=== PATIENT | male | born 1965 | race Caucasian/White ===

== ENCOUNTER → 2018-04-17 16:45 | Outpatient (CLI) | payer BC, SELFPAY ==
[2018-04-17 17:47] LABS: AST(SGOT) 28 U/L (15-37); Alanine Aminotransfer ALT/SGPT 32 U/L (16-61); Cholesterol 192 mg/dL (200); High Density Lipoprotein 80 mg/dL; Triglycerides 114 mg/dL; Very Low Density Lipoprotein 23 mg/dL (5-40)
== END ==
PROVIDERS: Family Provider Family Medicine; PCP Family Medicine; Visit Provider Family Medicine
DX: E78.5 Hyperlipidemia, unspecified (principal)
CPT/HCPCS: 36415; 80061; 84450; 84460

== ENCOUNTER → 2019-04-14 10:05 | Outpatient (CLI) | payer BC, SELFPAY ==
[2016-05-13 22:34] VITALS: BMI 25.8
[2019-04-14 12:50] LABS: AST(SGOT) 29 U/L (15-37); Alanine Aminotransfer ALT/SGPT 36 U/L (16-61); Cholesterol 205 mg/dL (200); High Density Lipoprotein 67 mg/dL; PSA,Total - Annual Screen 0.82 ng/mL (0.00-4.00); Triglycerides 183 mg/dL; Very Low Density Lipoprotein 37 mg/dL (5-40)
== END ==
PROVIDERS: Family Provider Family Medicine; PCP Family Medicine; Visit Provider Family Medicine
DX: Z00.00 Encounter for general adult medical examination without abnormal findings (principal); E78.5 Hyperlipidemia, unspecified
CPT/HCPCS: 36415; 80061; 84153; 84450; 84460; G0103

== ENCOUNTER → 2020-06-01 09:38 | Outpatient (CLI) | payer BC, SELFPAY ==
[2016-05-13 22:34] VITALS: BMI 25.8
[2020-06-01 12:24] LABS: AST(SGOT) 41 U/L (15-37); Alanine Aminotransfer ALT/SGPT 46 U/L (16-61); Cholesterol 197 mg/dL (200); High Density Lipoprotein 65 mg/dL; Triglycerides 100 mg/dL; Very Low Density Lipoprotein 20 mg/dL (5-40)
== END ==
PROVIDERS: PCP Family Medicine; Referring Provider Family Medicine; Visit Provider Family Medicine
DX: E78.5 Hyperlipidemia, unspecified (principal)
CPT/HCPCS: 36415; 80061; 84450; 84460

== ENCOUNTER → 2020-06-24 | Outpatient (CLI) | payer BC, SELFPAY ==
[2016-05-13 22:34] VITALS: BMI 25.8
== END | disposition home or self-care (01) ==
PROVIDERS: PCP Family Medicine; Referring Provider Family Medicine; Visit Provider Family Medicine
DX: Z20.828 Contact with and (suspected) exposure to other viral communicable diseases (principal)
CPT/HCPCS: 87635; U0003

== ENCOUNTER 2020-10-13 14:46 | Emergency (ER) | payer BC, SELFPAY ==
[2020-10-13 14:48] VITALS: BP 170/109; PULSE 95; RESP 17; TEMP 36.7; O2SAT 98; BMI 27.3
--- NOTE | 2020-10-13 15:24 | EKG12_ITS ---
Test Reason : COUGH Blood Pressure : / mmHG Vent. Rate : 092 BPM Atrial Rate : 092 BPM P-R Int : 154 ms QRS Dur : 078 ms QT Int : 334 ms P-R-T Axes : 042 023 033 degrees QTc Int : 413 ms Normal sinus rhythm Normal ECG Confirmed by AYDEE KUMAR, EMILIANO ([id number]), food expeditor NENA BUCHANAN ([id number]) on 10/15/2020 11:11:29 AM Referred By: JOSE Confirmed By:EMILIANO BAJWA MD
--- NOTE | 2020-10-13 15:50 | ED.VISSUMM ---
- ER Visit Summary Date of Service: 10/13/20 Chief Complaint: Cough, fever History of Present Illness: The patient is a 54 M presenting with cough, fever. He states his symptoms started yesterday. He had a routine screening colonoscopy per Dr. Asif yesterday. He states that during the procedure he had significant GERD and they were concerned about aspiration during the procedure. He was advised to come to the ED if he had persistent fever and cough. He had a temperature up to 101 today. He has had chills and nonproductive cough. He denies chest pain. Denies other complaints. Physical Examination: Vitals are stable. Patient is afebrile. Alert no acute distress. HEENT exam is unremarkable. Neck is supple. Lungs are rhonchi bilaterally. Heart is regular rate and rhythm. Abdomen is soft nontender nondistended. Extremities are unremarkable. Skin is warm and dry. No focal neurologic deficit. Remainder of exam is unremarkable. Emergency Department Course and Treatment: EKG is sinus rhythm rate of 92 with no acute ischemic changes. Chest x-ray shows left lower lung infiltrate. Labs are pending. Patient will be signed out to the oncoming physician. Disposition: pending Impression: Aspiration pneumonia This note was generated with [employer] dictation software. It may contain incorrect words, spelling, and punctuation that were not noted in review of the chart prior to signing ED Disposition - Plan for ED Patient: Referrals: Susana Vargas MD [Primary Care Provider] -
[2020-10-13 15:55] VITALS: O2SAT 97
--- NOTE | 2020-10-13 15:55 | RAD_ITS ---
STUDY: X-RAY CHEST REASON FOR EXAM: Male, 54 years old. COUGH, FEVER, CHILLS. STATES HE HAD ISSUE WITH GERD WHILE HAVING A COLONOSCOPY YESTERDAY. WORRIED ABOUT ASPIRATION. TECHNIQUE: Single AP portable view of the chest. COMPARISON: None. FINDINGS: There are monitoring devices. There are mild left lower lung increased opacities. There is no demonstrated pleural abnormality. Normal size heart. Normal mediastinum and skye. Normal visualized pulmonary arteries. Normal visualized aortic arch and descending thoracic aorta. Normal visualized thoracic spine. Normal visualized ribs, clavicles, and shoulders. There is no demonstrated abnormality of the visualized soft tissue structures of the upper abdomen. RAD/Chest 1 View (Portable) IMPRESSION: Left lower lung infiltrate or atelectasis. Electronically Signed: Harpal Cox MD at 16:18 EST , Service support ,
[2020-10-13 16:06] LABS: Absolute Lymphocyte Count 1.24 X10^3/uL (0.83-4.51); Absolute Neutrophil Count 10.3 X10^3/uL (2.0-7.7); Basophil# 0.04 X10^3/uL; Basophil% 0.3 % (0-1); Eosinophils% 1.6 % (0-5); Hematocrit 45.4 % (40-54); Hemoglobin 14.9 g/dL (13.0-16.5); Lymphocyte # 1.24 X10^3/ul (4.0); Lymphocyte % 9.7 % (19-41); Mean Corp Hgb Conc 32.8 g/dL (32-36); Mean Corpuscular Hgb 31.2 pg (27.0-32.0); Mean Corpuscular Volume 95.2 fL (80-94); Mean Platelet Vol. 9.3 fl (6.2-12.0); Monocyte# 0.87 X10^3/uL; Monocyte% 6.8 % (0-10); NRBC Flagged by Analyzer 0 % (0-5); Neutrophil # 10.31 X10^3/uL (2.7-7.7); Neutrophil % 81.1 % (47-70); Platelet Count 214 K/mm3 (150-450); RBC Distribution Width CV 13.7 % (11.6-14.6); RBC Distribution Width SD 48.5 fl (35.1-43.9); Red Blood Count 4.77 M/mm3 (4.6-6.2); White Blood Count 12.7 K/mm3 (4.4-11.0)
[2020-10-13 16:40] LABS: D-Dimer Quantitative (DVT/PE) 2.83 FEU/ug/m (0.27-0.49)
--- NOTE | 2020-10-13 16:43 | CT_ITS ---
STUDY: CTA CHEST REASON FOR EXAM: Male, 54 years old. Cough fever, chills, elevated D-dimer, patient had colonoscopy yesterday and aspirated. RADIATION DOSAGE (If Supplied By Facility): CTDIvol = ( 1041 ) mGy, DLP = ( 489.86 ) mGycm TECHNIQUE: The examination was performed with the intravenous administration of IV 100mL Isovue-370. Post-processing of the angiographic images was performed, with multiplanar reformation and 3D reconstruction. Individualized dose optimization techniques were used for this CT. COMPARISON: Chest x-ray FINDINGS: Normal enhancement of the main pulmonary artery and right and left pulmonary arteries. Normal enhancement of the bilateral peripheral pulmonary arteries. There is no demonstrated pulmonary embolism. There is atherosclerotic calcification of the aortic arch with tortuosity. There is no demonstrated aortic dissection. Normal heart and pericardium. Normal mediastinum. Normal hilar regions. Normal visualized trachea and bronchi. The lungs are well expanded. There are patchy groundglass increased opacities of the left lower more than mid and upper lung. Right lower lung atelectasis. Normal pleura. Normal chest wall structures. Normal osseous structures. Normal visualized upper abdomen. CT/CTA Chest W/WO Contrast IMPRESSION: CTA chest examination, without a demonstrated pulmonary embolism or arterial dissection. Left lung infiltrate. Electronically Signed: Harpal Cox MD at 17:52 EST , Service support ,
[2020-10-13 16:53] LABS: ALB/GLOB Ratio 0.9 RATIO (0.9-2.4); AST(SGOT) 20 U/L (15-37); Alanine Aminotransfer ALT/SGPT 29 U/L (16-61); Albumin, Serum 3.5 g/dL (3.2-5.0); Alkaline Phosphatase 49 U/L (45-117); Anion Gap 6 (5-15); BUN 7 mg/dL (7-18); BUN/Creat Ratio 5.6 RATIO (10-20); Calcium,Total 9.8 mg/dL (8.5-10.1); Chloride 106 mmol/L (98-107); Creatinine, Serum 1.26 mg/dL (0.70-1.30); EST Glomerular Filtration Rate 63 mL/min (>60); Est Glom Filt Rate - Afr Amer 76 mL/min (>60); Estimated Creatinine Clearance 59.07 ml/min; Globulin 3.8 g/dL (2.2-4.2); Glucose 97 mg/dL (74-106); Potassium 3.8 mmol/L (3.5-5.1); Protein, Total 7.3 g/dL (6.4-8.2); Sodium Level 139 mmol/L (136-145)
[2020-10-13 17:04] VITALS: BP 162/97; PULSE 91; RESP 26; TEMP 37.1; O2SAT 97
[2020-10-13 17:08] VITALS: O2SAT 97
--- NOTE | 2020-10-13 18:16 | ED.DEP ---
ED Disposition - Plan for ED Patient: Disposition: Home or Assisted Living Diagnosis: Pneumonia Instructions: ED Pneumonia (Adult) Prescriptions: levoFLOXacin tablet [Levaquin] 500 mg PO DAILY #7 tab Prescription Printed Referrals: Susana Vargas MD [Primary Care Provider] -
[2020-10-13 18:31] VITALS: BP 162/98; PULSE 94; RESP 27; O2SAT 96
== END 2020-10-13 18:43 | disposition home or self-care (01) ==
PROVIDERS: Emergency Provider Emergency Medicine; PCP Family Medicine
DX: J69.0 Pneumonitis due to inhalation of food and vomit (principal); Z20.822 Contact with and (suspected) exposure to COVID-19; R79.89 Other specified abnormal findings of blood chemistry; I10 Essential (primary) hypertension; K21.9 Gastro-esophageal reflux disease without esophagitis
CPT/HCPCS: 71045; 71275; 80053; 84484; 85025; 85379; 87426; 93005; 99285; Q9967; A4216

== ENCOUNTER 2021-10-04 14:28 | Outpatient (CLI) | payer BC, SELFPAY ==
[2021-10-04 17:51] LABS: AST(SGOT) 25 U/L (15-37); Alanine Aminotransfer ALT/SGPT 36 U/L (16-61); Cholesterol 198 mg/dL (200); High Density Lipoprotein 81 mg/dL; Triglycerides 115 mg/dL; Very Low Density Lipoprotein 23 mg/dL (5-40)
== END 2021-10-04 23:59 | disposition short-term general hospital (02) ==
LOC: MFPLAB 14:29
PROVIDERS: PCP Family Medicine; Referring Provider Family Medicine; Visit Provider Family Medicine
DX: E78.5 Hyperlipidemia, unspecified (principal)
CPT/HCPCS: 36415; 80061; 84450; 84460

== ENCOUNTER → 2022-10-04 | Outpatient (CLI) | payer OTHER, SELFPAY ==
[2022-10-04 17:36] LABS: Absolute Lymphocyte Count 2.15 X10^3/uL (0.83-4.51); Absolute Neutrophil Count 1.9 X10^3/uL (2.0-7.7); Basophil# 0.06 X10^3/uL; Basophil% 1.2 % (0-1); Eosinophil# 0.01 X10^3/uL; Eosinophils% 0.2 % (0-5); Hematocrit 46.1 % (40-54); Lymphocyte # 2.15 X10^3/ul (0.83-4.51); Lymphocyte % 44.5 % (19-41); Mean Corp Hgb Conc 32.5 g/dL (32-36); Mean Corpuscular Volume 95.2 fL (80-94); Mean Platelet Vol. 9.8 fl (6.2-12.0); Monocyte# 0.75 X10^3/uL; Monocyte% 15.5 % (0-10); NRBC Flagged by Analyzer 0 % (0-5); Neutrophil # 1.85 X10^3/uL (2.7-7.7); Neutrophil % 38.4 % (47-70); Platelet Count 269 K/mm3 (150-450); RBC Distribution Width CV 13.5 % (11.6-14.6); RBC Distribution Width SD 47.7 fl (35.1-43.9); Red Blood Count 4.84 M/mm3 (4.6-6.2); White Blood Count 4.8 K/mm3 (4.4-11.0)
[2022-10-04 18:19] LABS: AST(SGOT) 31 U/L (15-37); Alanine Aminotransfer ALT/SGPT 44 U/L (16-61); Albumin, Serum 3.6 g/dL (3.2-5.0); Alkaline Phosphatase 46 U/L (45-117); Anion Gap 10 (5-15); BUN 15 mg/dL (7-18); BUN/Creat Ratio 13.9 RATIO (10-20); Calcium,Total 9.1 mg/dL (8.5-10.1); Chloride 101 mmol/L (98-107); Cholesterol 217 mg/dL (200); Creatinine, Serum 1.08 mg/dL (0.70-1.30); EST Glomerular Filtration Rate 74 mL/min (>60); Est Glom Filt Rate - Afr Amer 90 mL/min (>60); Globulin 3.6 g/dL (2.2-4.2); Glucose 76 mg/dL (74-106); High Density Lipoprotein 61 mg/dL; PSA,Total - Annual Screen 0.92 ng/mL (0.00-4.00); Potassium 3.9 mmol/L (3.5-5.1); Protein, Total 7.2 g/dL (6.4-8.2); Sodium Level 139 mmol/L (136-145); Triglycerides 128 mg/dL; Very Low Density Lipoprotein 26 mg/dL (5-40)
[2022-10-04 18:34] LABS: Erythrocyte Sedimentation Rate 17 mm/hr (0-20)
[2022-10-10 20:20] LABS: EBV Acute VCA IgM < 36.0 U/mL (0.0-35.9); EBV-VCA IgG 19.8 U/mL (0.0-17.9)
== END | disposition home or self-care (01) ==
LOC: MFPLAB 14:59
PROVIDERS: PCP Family Medicine; Referring Provider Family Medicine; Visit Provider Family Medicine
DX: Z00.00 Encounter for general adult medical examination without abnormal findings (principal); Z12.5 Encounter for screening for malignant neoplasm of prostate; E78.5 Hyperlipidemia, unspecified; R68.83 Chills (without fever)
CPT/HCPCS: 36415; 80053; 80061; 84153; 85025; 85652; 86664; 86665; G0103

== ENCOUNTER → 2024-02-18 | Outpatient (CLI) | payer OTHER, SELFPAY ==
--- NOTE | 2024-02-15 16:45 | LES_PTH ---
PATIENT: AMANDA BARNES [facility] U#:[id number] AGE/SX: 58/M ROOM: RE02/18/[address]: Dr. Susana Vargas MD : 1965 BED: DIS: 02/18/2024 SPEC #: [id number] RECD: 02/18/24 10:33 STATUS: FLACO MARIZA #: [id number] DASH: 02/15/24 16:[address]: Susana Vargas DEPT: SURGICAL PATHOLOGY RECD BY: Christina Browning Tissues: Skin of chest Procedures: Surgery Specimen Level IV HEADER OPERATION: Lesion right chest removal PRE-OP DIAGNOSIS: Atypical nevus TISSUE SUBMITTED: Lesion right chest MICROSCOPIC DIAGNOSIS Right chest lesion, biopsy: Inflamed atypical squamous epithelial lesion with verrucous features. See comment. CHARIS/ 02/19/2024 COMMENT Clinical correlation and appropriate follow up are necessary. Complete excision of the lesion is suggested if clinically indicated. Case has been reviewed in consultation with Dr. Rehman who concurs with the above diagnosis. IDC:AM MICROSCOPIC DESCRIPTION Slides are reviewed. GROSS DESCRIPTION Received in fixative is one container labeled with the patient's name and designated Lesion right chest. The specimen consists of an irregular piece of white-white skin measuring 0.6 x 0.2 x 0.1cm. The specimen is inked and submitted entirely in one cassette. CHARIS/ 02/18/2024 TC:5 CPT:82008
== END | disposition home or self-care (01) ==
LOC: LABSPEC 10:42
PROVIDERS: PCP Family Medicine; Visit Provider Family Medicine
DX: D22.5 Melanocytic nevi of trunk (principal)
CPT/HCPCS: 88305

== ENCOUNTER 2024-07-21 10:32 | Outpatient (CLI) | payer OTHER, SELFPAY ==
[2024-07-21 12:40] LABS: Protein, Urine (Random) 6.6 mg/dL (<11.9); Protein:Creat Ratio 115 mg/g CRE (0-200)
[2024-07-21 13:01] LABS: AST(SGOT) 40 U/L (15-37); Alanine Aminotransfer ALT/SGPT 51 U/L (16-61); Anion Gap 9 (5-15); BUN 21 mg/dL (7-18); BUN/Creat Ratio 16.8 RATIO (10-20); Calcium,Total 9.2 mg/dL (8.5-10.1); Chloride 105 mmol/L (98-107); Cholesterol 204 mg/dL (200); Creatinine, Serum 1.25 mg/dL (0.70-1.30); EST Glomerular Filtration Rate 63 mL/min (>60); Est Glom Filt Rate - Afr Amer 76 mL/min (>60); Glucose 98 mg/dL (74-106); High Density Lipoprotein 75 mg/dL; PSA,Total - Annual Screen 1.08 ng/mL (0.00-4.00); Potassium 4.2 mmol/L (3.5-5.1); Sodium Level 139 mmol/L (136-145); Triglycerides 146 mg/dL; Very Low Density Lipoprotein 29 mg/dL (5-40)
== END 2024-07-21 23:59 | disposition home or self-care (01) ==
LOC: MFPLAB 10:34
PROVIDERS: PCP Family Medicine; Visit Provider Family Medicine
DX: I10 Essential (primary) hypertension (principal); E78.5 Hyperlipidemia, unspecified; Z12.5 Encounter for screening for malignant neoplasm of prostate
CPT/HCPCS: 36415; 80048; 80061; 82570; 84153; 84156; 84443; 84450; 84460; G0103

== ENCOUNTER → 2025-05-25 | Outpatient (CLI) | payer OTHER, SELFPAY ==
--- NOTE | 2025-05-25 08:00 | RAD_ITS ---
PROCEDURE: ESOPHAGUS DUAL CONTRAST 05/25/2025 REASON FOR EXAM: ESOPHGUS FLUID FILLED/ 12MM TABLET TECHNIQUE: ESOPHAGUS DUAL CONTRAST FLUOROSCOPIC TIME: 36 seconds. 4.22 mGy. FLUOROGRAPHIC IMAGES: 47 The patient ingested barium. Multiple fluoroscopic images were obtained. COMPARISON: None FINDINGS: The esophagus is unremarkable. No evidence of esophageal obstruction. No mass lesion is seen. No evidence of gastroesophageal reflux. The patient ingested a 12 mm tablet the barium without any difficulty. RAD/Esophagus Dual Contrast IMPRESSION: Unremarkable air-contrast esophagram barium swallow. Reading Location: [facility]
== END | disposition home or self-care (01) ==
PROVIDERS: PCP Family Medicine; Referring Provider Family Medicine; Visit Provider Family Medicine
DX: K22.9 Disease of esophagus, unspecified (principal)
CPT/HCPCS: 74221

== ENCOUNTER → 2025-06-06 | Outpatient (CLI) | payer SELFPAY, OTHER ==
--- NOTE | 2025-06-06 07:55 | CT_ITS ---
PROCEDURE: SINUS/FACIAL BONE 06/06/2025 REASON FOR EXAM: CHRONCI RHINTIS AND SINUSITIS TECHNIQUE: Procedure Code: CTSI Modality: CT Procedure: SINUS/FACIAL BONE Coronal and Sagittal reconstruction series were provided. One or more dose reduction techniques were used (e.g., Automated exposure control, adjustment of the mA and/or kV according to patient size, use of iterative reconstruction technique). RADIATION DOSE SUMMARY: CTDI Vol 22.63 mGy DLP :515.6mGycm COMPARISON: none FINDINGS: Minimal lamellar mucosal thickening of the ethmoidal air cells, frontal sinuses as well as the maxillary antra. Clear sphenoid sinus. Uncinate Processes: No deviation or bulla formation O-M UNIT: patent. Sphenoethmoidal recesses. Patent Fovea Ethmoidalis: Normal position. Fovea ethmoidalis and cribriform plate are not low lying Nasal Septum: bowed convex to the left side. Turbinates: Thickening of the mucosa covering the right inferior turbinate with clear right middle saida bullosa. Nasopharynx: no obvious abnormalities. Mastoid air cells and middle ear clefts: Unremarkable Facial Bones and mandible: Unremarkable. CT/Sinus/Facial Bone IMPRESSION: Minimal ethmoidal, maxillary and frontal sinusitis. Bowed nasal septum convex to the left side. Prominent right inferior turbinate with clear right middle saida bullosa. Reading Location: [place] [id number]
== END | disposition home or self-care (01) ==
PROVIDERS: PCP Family Medicine; Referring Provider Family Medicine; Visit Provider Family Medicine
DX: J32.9 Chronic sinusitis, unspecified (principal)
CPT/HCPCS: 70486